=== PATIENT | male | born 1990 | race Caucasian/White ===

== ENCOUNTER 2017-04-10 19:11 | Emergency (ER) | payer BC, OTHER ==
[2017-04-10] MEDS ORDERED: TDAP ADULT 0.5 ML INJ (BOOSTRIX) IM ONE (20:19)
[2017-04-10] MEDS ORDERED: CEPHALEXIN 500MG PREPACK#4 BTL TAKEHOME ONE (20:22)
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
[2017-04-10 20:47] VITALS: BP 125/72; PULSE 78; RESP 16; TEMP 98.1; O2SAT 97
== END 2017-04-10 20:48 | disposition home or self-care (01) ==
DX: S81.811A Laceration without foreign body, right lower leg, initial encounter (principal); F17.200 Nicotine dependence, unspecified, uncomplicated; Z23 Encounter for immunization; V18.2XXA Unspecified pedal cyclist injured in noncollision transport accident in nontraffic accident, initial encounter

== ENCOUNTER 2018-05-31 15:17 | Emergency (ER) | payer SELFPAY ==
--- NOTE | 2018-05-31 15:54 | ASMTCMCOM ---
CM Note CM Note Notes: Pt. requested to see CM for assistance with Medicaid SW spoke with pt. and provided a business card for Christy Glasgow, patient advocate. Christy is out of the office for the holiday to return 06/01. Email sent to Christy with pt. information for follow up. Date Signed: 05/31/2018 03:54 PM Electronically Signed By:Mouna Schultz LCSW
--- NOTE | 2018-05-31 15:57 | ASMTLACE ---
LACE Length of stay for Answers: Less than 1 day current admission Acuity / Level of Answers: No Care: Did the patient have an inpatient admission? Social determinants Answers: Lack of community resources and/or lack of social support (no pcp, lives alone, transportation, kartik d) Score: 4 Date Signed: 05/31/2018 03:56 PM Electronically Signed By:Mouna Schultz LCSW
--- NOTE | 2018-05-31 16:03 | EDPHY ---
H & P Stated Complaint: large splinter under left finger nail Time Seen by Provider: 05/31/18 16:07 HPI/ROS: HPI: This is a 28-year-old male who presents with Chief Complaint: Left middle finger splinter Location: Left middle finger Quality: Splinter Duration: Prior to arrival Signs and Symptoms: No bleeding, no radiation, no numbness, no weakness, no tingling, no incontinence, no decreased range of motion, no swelling, no pain, no fever Timing: Acute Severity:mild Context: Patient is right-hand dominant, presents with being at a local retail store and while at the counter reach for his credit card and had a wood splinter from the counter top go underneath his left middle finger. He reports that he felt immediate constant pain. He went to urgent care and they directed him to the emergency room for further evaluation. Reports tetanus status unknown. Pain is minimal but worsened with touching of the area. Modifying Factors: None Comment: ROS: see HPI Constitutional: No fever, no chills, no weight loss Eyes: No blurred vision Respiratory: No shortness of breath, no cough Cardiovascular: No chest pain Gastrointestinal: No nausea, no vomiting no diarrhea Genitourinary: No dysuria Extremities: No myalgias Neurologic: No weakness, no numbness Skin: No rashes Hematologic: No bruising, no bleeding MEDICAL/SURGICAL/SOCIAL HISTORY: Medical history: Stomach ulcer Surgical history: Right arm surgery Social history: Smoker. CONSTITUTIONAL: Adult white male, polite and cooperative, awake and alert, no obvious distress HEENT: Atraumatic and normocephalic. EXTREMITIES: 2/2 pulses, strength 5/5, left middle finger nail on the lateral portion shows splinter of wood under the lateral portion. DIP/PIP/MCP flexion/ extension intact with good light touch sensation. no deformities, no clubbing, no cyanosis or edema. NEUROLOGICAL: no focal neuro deficits. GCS 15. Light touch sensation intact. SKIN: Warm and dry, no erythema. no rash. Good capillary refill. Source: Patient Exam Limitations: No limitations - Personal History Current Tetanus/Diphtheria Vaccine: No Current Tetanus Diphtheria and Acellular Pertussis (TDAP): No - Medical/Surgical History Hx Asthma: No Hx Chronic Respiratory Disease: No Hx Diabetes: No Hx Cardiac Disease: No Hx Renal Disease: No Hx Cirrhosis: No Hx Alcoholism: No Hx HIV/AIDS: No Hx Splenectomy or Spleen Trauma: No Other PMH: rigth arm sx, stomach ulcers - Social History Smoking Status: Current some day smoker Constitutional: Initial Vital Signs Temperature (C) 36.8 C 05/31/18 15:20 Heart Rate 97 05/31/18 15:20 Respiratory Rate 18 05/31/18 15:20 Blood Pressure 121/91 H 05/31/18 15:20 O2 Sat (%) 95 05/31/18 15:20 O2 Delivery Mode Room Air Allergies/Adverse Reactions: No Known Allergies Allergy (Verified 05/31/18 15:19) Home Medications: Medication Instructions Recorded Amoxicillin/Clavulanate Pot 875 mg PO BID #10 tab 05/31/18 [Augmentin 875 MG TAB (*)] Medical Decision Making Procedures: Procedure: Nail foreign body removal Anesthesia: 3 mL of 1% lidocaine without epinephrine Verbal consent was obtained from the patient to drain a subungual hematoma. The patient was prepped in the usual fashion. The wood fragments were removed using forceps. Irrigated copiously. There were no complications. The procedure was performed by myself. ED Course/Re-evaluation: Tetanus booster given. Local anesthesia provided and splinter fragments removed under direct visualization with forceps. Irrigated copiously. Bacitracin clean sterile dressing applied. Placed on Augmentin. No signs of neurovascular compromise/tenting of skin/compartment syndrome/ extremities and joints examined above and below area of concern and are neurovascularly intact. This patient was seen under the supervision of my secondary supervising physician. I evaluated care for this patient independently. Discussed this patient with Dr. Raza. Differential Diagnosis: Differential diagnosis includes but is limited to splinter under fingernail. Departure - Departure Disposition: Home, Routine, Self-Care Clinical Impression: Splinter of finger without major open wound or infection Qualifiers: Encounter type: initial encounter Qualified Code(s): S60.459A - Superficial foreign body of unspecified finger, initial encounter Condition: Good Instructions: Amoxicillin/Clavulanate Potassium (By mouth), Soft Tissue Foreign Body (ED) Additional Instructions: Keep the dressing dry and in place for 48 hours. After 48 hours, you may remove the dressing; wash the site daily with mild soap and water; then pat dry. Take Tylenol 650 mg every 4 hours and/or Ibuprofen 600 mg every 8 hours with food as needed for pain. Take Augmentin as directed. Do not skip a dose. Return to the ER immediately if you experience redness, red streaks, have fevers /chills, flu like symptoms, limited range of motion, or any other symptoms that concern you. Referrals: [facility],. [Clinic] - As per Instructions Prescriptions: Amoxicillin/Clavulanate Pot [Augmentin 875 MG TAB (*)] 875 mg PO BID #10 tab
[2018-05-31] MEDS ORDERED: TDAP ADULT 0.5 ML INJ (BOOSTRIX) IM ONE (16:10)
[2018-05-31 16:11] VITALS: BP 115/76
== END 2018-05-31 16:32 | disposition home or self-care (01) ==
DX: S60.459A Superficial foreign body of unspecified finger, initial encounter (principal); Z23 Encounter for immunization; F17.200 Nicotine dependence, unspecified, uncomplicated